=== PATIENT | female | born 1940 | race Caucasian/White ===

== ENCOUNTER 2016-12-15 14:46 | Inpatient (IN) | payer MEDICARE, OTHER ==
--- NOTE | ~2016-12-15 | IDS ---
Interim Discharge Summary [facility] [address] [place]. [address] NAME: BRIDGET PAGAN : 42 STATUS : ADM IN [facility]#: [id number] AGE: 76 ADM/REG DATE : 12/15/16 MR#: [id number] REPORT SERV DATE: 12/18/16 DICTATED BY: REBECCA ONTIVEROS DATE: 12/18/16 REPORT STATUS : Draft TRANSCRIBED BY: MODL DATE: 12/18/16 ADMISSION DATE: 12/15/2016 DISCHARGE DATE: Date that this patient will be taken over by my partner include 12/19/2016. CONDITION: Condition of the patient so far is stable. DIAGNOSES: So far: 1. Left lower extremity cellulitis-improving, but very slowly with IV antibiotics- the patient is on IV Ancef at this time. Leukocytosis that was present upon admission has completely resolved right now, and the sepsis has resolved; however, the left lower extremity cellulitis itself has not improved to my expectation, hence ID has been consulted for this. 2. Blood cultures have been negative. 3. Other diagnoses that are stable at this time include hypertension, which is stable with her home medications. 4. The patient did have one episode of rapid atrial fibrillation for a brief period, for which the patient was started on IV Cardizem and Cardiology was consulted, but within a few hours this resolved and the patient has been doing well with Cardizem 60 mg every six hours. Eventually, this may need to be changed to Cardizem CD 120 mg p.o. b.i.d. Cardiology has not advised any further intervention on this patient. Echocardiogram at this time is pending to check for LV dysfunction/diastolic dysfunction in this patient. 5. Chronic venous insufficiency and this is probably from prolonged standing that the patient has been doing for years at work. 6. Probable early dementia which can be worked up as an outpatient as the patient's daughter also states that she has been slightly confused and somewhat forgetful for a while now. BRIEF HOSPITAL COURSE: Ms. Pagan is a very pleasant 76-year-old patient who was admitted essentially with left lower extremity cellulitis as a direct admit from Dr. Moss's office. The patient was started on IV fluids, IV antibiotics with Ancef. Blood cultures are negative. The patient did not have any open wound anywhere from the left lower extremity for culture. She does have onychomycosis of the toes, for which she went to a laborer wharf recently for her left foot. However, there are no open wounds and no discharge for culture and hence the patient has been continuing to be on Ancef. She has done pretty well and her left lower extremity cellulitis has improved, but not tremendously. Hence, I have consulted ID to see if this patient is a candidate for maybe additional vancomycin or Zosyn and vancomycin or other suggestion for antibiotics. ID will be seeing her on 12/19/2016. Other than that, the patient was doing well and her fever and leukocytosis completely resolved. At one time, she had an episode of rapid atrial fibrillation for a few hours, for which we had to put her on IV Cardizem and consult Cardiology. She was asymptomatic otherwise. This may have been part of her systemic sepsis itself because this happened early on during admission. Cardiology consulted and decided that they would not do any further interventions on her except check an echocardiogram. After that for the last 24 to Interim Discharge Summary [address] [address] NAME: BRIDGET PAGAN : 42 STATUS : ADM IN PAT#: [id number] AGE: 76 ADM/REG DATE : 12/15/16 MR#: [id number] REPORT SERV DATE: 12/18/16 DICTATED BY: REBECCA ONTIVEROS DATE: 12/18/16 REPORT STATUS : Draft TRANSCRIBED BY: YOLETTE DATE: 12/18/16 48 hours, the patient has remained in sinus rhythm with just p.o. Cardizem 60 mg every six hours. Eventually, this may need to be changed back to her home dose of Cardizem CD 120 mg p.o. b.i.d. and watch her. Her left lower extremity cellulitis should improve within a few days, but we will see what ID suggests. This is my interim discharge summary and this patient will be taken over by my colleague on 12/20/2016. NORA/YOLETTE Rebecca Ontiveros M.D. / [id number] CC: Chilo Villarreal M.D.
--- NOTE | ~2016-12-15 | DS ---
Discharge Summary [facility] [address] [place]. [address] NAME: BRIDGET CASAS : 42 STATUS : DIS IN PAT#: [id number] AGE: 76 ADM/REG DATE : 12/15/16 MR#: [id number] REPORT SERV DATE: 12/22/16 DICTATED BY: ED YE DATE: 12/21/16 REPORT STATUS : Draft TRANSCRIBED BY: MODL DATE: 12/21/16 ADMISSION DATE: 12/15/2016 DISCHARGE DATE: 12/21/2016 HOSPITAL COURSE: 76-year-old female with history of hypertension, osteoarthritis, history of recurrent cellulitis, and lymphedema. The patient came in, direct admission from Dr. Moss's office. Left leg redness pain and swelling. Clinical cellulitis. She had a slow clinical improvement. IV antibiotics and IV Ancef. Leukocytosis, resolved. Blood cultures, no growth to date. She has some RVR, placed on IV diltiazem and transitioned, diltiazem CD 120 p.o. b.i.d. with Cardiology as well. The patient was seen by Infectious Disease, given slowly progressing cellulitis, seen by Dr. Remy. She was noted to have some onychomycosis. We will give her terbinafine for 12 weeks and baseline LFTs. Increased the dose to Ancef 2 g IV q.8 now, transition to oral therapy as Duricef 1 g p.o. b.i.d. for seven days. Follow up with Dr. Remy in two weeks, and to have more strict bed rest. Get the swelling down faster. Once her swelling is down significantly, she will need to be measured for fitting compression stockings, wear those all the times when she is up, and this is defer to Home Health to facilitate compression stockings. The patient is amenable for discharge, wants to go home. Home Health. She was placed on Eliquis with Cardiology. DISCHARGE MEDICATIONS: Eliquis 5 p.o. b.i.d.; Lipitor 10 p.o. q.h.s.; cefadroxil, see script; diltiazem CD 120 p.o. b.i.d.; hydralazine 25 p.o. b.i.d.; lisinopril 5 p.o. q.h.s.; and chlorthalidone 25 p.o. daily. Home Health for compression stockings after finishing antibiotics. DISCHARGE DIAGNOSES: Sepsis, left lower extremity cellulitis, lymphedema, hypertension, onychomycosis, osteoarthritis, paroxysmal atrial fibrillation. All questions were answered. It took well over 30 minutes to do. DICTATED BY: DO GEORGE Smith/YOLETTE Ed Ye DO / [id number] CC: Discharge Summary [address] [address] NAME: BRIDGET CASAS : 42 STATUS : DIS IN PAT#: [id number] AGE: 76 ADM/REG DATE : 12/15/16 MR#: [id number] REPORT SERV DATE: 12/22/16 DICTATED BY: ED YE DATE: 12/21/16 REPORT STATUS : Draft TRANSCRIBED BY: YOLETTE DATE: 12/21/16 DO David Smith M.D.
--- NOTE | ~2016-12-15 | CN ---
Consultation Report [facility] [address] [place]. [address] NAME: VANE PAGAN : 42 STATUS : ADM IN [facility]#: [id number] AGE: 76 ADM/REG DATE : 12/15/16 MR#: [id number] REPORT SERV DATE: 12/16/16 DICTATED BY: PORFIRIO MONGE DATE: 12/16/16 REPORT STATUS : Draft TRANSCRIBED BY: MODL DATE: 12/16/16 CARDIOVASCULAR CONSULTATION DATE OF CONSULTATION: 12/16/2016 HISTORY OF PRESENT ILLNESS: Ms. Vane Pagan is a 76-year-old female, whom I see for hypertension, hyperlipidemia, and frequent PACs. She was admitted yesterday after seeing Dr. David Moss in the office where she was found to have a significant left lower extremity cellulitis. The patient had a white blood cell count performed there of 21,000. I was asked to see her for several episodes of tachycardia. The patient denies any chest pain or shortness of breath. She just reports that she has been extremely fatigued over the last several days and that while at work on Monday began having some chills. She then saw Dr. Moss the next day. PAST MEDICAL HISTORY: As noted above. Significant for previous history of hypertension, hyperlipidemia, and frequent PACs. The patient has a history of scoliosis. She reports that this is her third episode of lower extremity cellulitis. The patient also with a history of osteoarthritis. SOCIAL HISTORY: The patient does not smoke. FAMILY HISTORY: Positive for coronary artery disease. MEDICATIONS: See list. ALLERGIES: THE PATIENT REPORTS NO KNOWN DRUG ALLERGIES. PHYSICAL EXAMINATION: VITAL SIGNS: Blood pressure 129/61, pulse 79, respiratory rate 16, and temperature 99.2 (T- max 100.2). GENERAL: This is a well-developed, well-nourished, disheveled-appearing 76-year-old white female, alert and oriented x3. Sitting up and eating dinner. NECK: No jugular venous distention, hepatojugular reflux, or carotid bruits. CARDIOVASCULAR: Normal rate with regular rhythm. Occasional ectopy is noted. No murmur, gallop, click, or rub is appreciated. LUNGS: Clear to auscultation without wheezes, rales, or rhonchi. ABDOMEN: Benign. EXTREMITIES: Exam reveals 2+ lower extremity edema with erythema on the left consistent with cellulitis. There is trace lower extremity edema on the right. IMAGING: EKG shows normal sinus rhythm with frequent PACs. There is no evidence of recent or remote myocardial infarction. No evidence of ischemia or injury. Review of rhythm strips shows an intermittent irregular tachycardia, which appears supraventricular, most Consultation Report [facility] [address] [place]. [address] NAME: VANE PAGAN : 42 STATUS : ADM IN PAT#: [id number] AGE: 76 ADM/REG DATE : 12/15/16 MR#: [id number] REPORT SERV DATE: 12/16/16 DICTATED BY: PORFIRIO MONGE DATE: 12/16/16 REPORT STATUS : Draft TRANSCRIBED BY: YOLETTE DATE: 12/16/16 likely PAT, although there may be some brief runs of atrial fibrillation. ASSESSMENT: 1. Normal sinus rhythm with PACs (chronic) is the underlying predominant rhythm. There do appear to be short runs of a supraventricular tachycardia likely PAT or brief runs of atrial fibrillation. 2. Cellulitis. 3. Hypertension. 4. Hyperlipidemia. PLAN: 1. Agree with Cardizem. Would increase the dose as tolerated. Do not recommend anticoagulation at this time. 2. Check echocardiogram. 3. Appreciate your consultation on this complex patient. I will follow her with you. /YOLETTE Porfirio Monge M.D., [facility] / [id number] CC: Chilo Villarreal M.D.
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
[~2016-12-15 14:46] MED LIST: CARDIZEM LA120 MG PO; CARTIA XT120 MG/24 PO; CAT1 PO; CIP5 PO; FISH-EPA1000 MG PO; LIPITOR10 PO; LIPITOR20 PO; METAMUCIL CAN7 OZ PO; PCET PO; PROLOP100 PO; VITAMIN D1000 UNI1 PO; VITAMIN D3 OTC PO; VITAMIN D31000 UNIT PO; VITAMINS; ZESTRIL30 MG PO; ZIAC10 PO; ZOCOR20 PO
[2016-12-15 16:47] LABS: BASOPHILS 0.1 %; BASOPHILS ABSOLUTE 0.02 10/3/uL (0.0-0.16); EOSINOPHILS 0 %; EOSINOPHILS ABSOLUTE 0.01 10/3/uL (0.0-0.53); HEMATOCRIT 35.4 % (36.0-48.0); IMMATURE GRANULOCYTES 0.4 %; IMMATURE GRANULOCYTES ABSOLUTE 0.08 10/3/uL (0.0-0.11); LYMPHOCYTES ABSOLUTE 1.44 10/3/uL (0.67-4.30); MANUAL DIFF NO %; MEAN CORPUS HGB CONC 33.9 g/dL (32.0-36.0); MEAN CORPUSCULAR HEMOGLOB 30.7 pg (26.0-34.0); MEAN CORPUSCULAR VOLUME 90.5 fL (80-100); MEAN PLATELET VOLUME 10.6 fL (9.2-13.0); MONOCYTES 4.7 %; MONOCYTES ABSOLUTE 0.96 10/3/uL (0.21-1.20); NEUTROPHILS 87.8 %; NEUTROPHILS ABSOLUTE 18.03 10/3/uL (2.02-8.40); PLATELET COUNT 214 10/3/uL (150-400); RBC DISTRIBUTION WIDTH 13.7 % (12.0-16.0); RED CELL COUNT 3.91 10/6/uL (4.0-5.6); WHITE BLOOD CELLS 20.5 10/3/uL (4.5-10.5)
[2016-12-15 17:02] LABS: A/G RATIO 0.8 (0.7-1.9); ALBUMIN 3.1 G/DL (3.5-5.0); CALCIUM, SERUM 9.1 MG/DL (8.5-10.4); GLUCOSE, SERUM 96 MG/DL (60-99); POTASSIUM, SERUM 3.2 MMOL/L (3.5-5.3); SGOT(AST) 23 U/L (5-40); SGPT(ALT) 32 U/L (5-65); TOTAL PROTEIN 7.1 G/DL (6.0-8.5)
[2016-12-15 17:03] LABS: ALKALINE PHOSPHATASE 89 U/L (45-117); BUN (BLOOD UREA NITROGEN) 33 MG/DL (6-23); CHLORIDE, SERUM 94 MMOL/L (96-112); CO2 (CARBON DIOXIDE) 29 MMOL/L (24-34); CREATININE 1.13 MG/DL (0.55-1.02); GFR AFRICAN AMERICAN 55 ML/MIN (>=60); GFR NON AFRICAN AMERICAN 48 ML/MIN (>=60); SODIUM, SERUM 131 MMOL/L (135-148); TOTAL BILIRUBIN 1.5 MG/DL (0-1.2)
[2016-12-15] MEDS ORDERED: ZESTRIL30 MG PO (17:04)
[2016-12-15] MEDS ORDERED: APRES25 PO (17:04)
[2016-12-15] MEDS ORDERED: HYGROTON 25 MG25 MG PO (17:04)
[2016-12-15] MEDS ORDERED: LIPITOR10 PO (17:05)
[2016-12-15] MEDS ORDERED: CARTIA XT120 MG/24 PO (17:05)
[2016-12-16 08:24] LABS: BASOPHILS 0.2 %; BASOPHILS ABSOLUTE 0.03 10/3/uL (0.0-0.16); EOSINOPHILS 0.1 %; EOSINOPHILS ABSOLUTE 0.01 10/3/uL (0.0-0.53); HEMATOCRIT 33.7 % (36.0-48.0); HEMOGLOBIN 11.6 g/dL (12.0-16.0); IMMATURE GRANULOCYTES 0.6 %; IMMATURE GRANULOCYTES ABSOLUTE 0.09 10/3/uL (0.0-0.11); LYMPHOCYTES ABSOLUTE 1.64 10/3/uL (0.67-4.30); MEAN CORPUS HGB CONC 34.4 g/dL (32.0-36.0); MEAN CORPUSCULAR HEMOGLOB 30.7 pg (26.0-34.0); MEAN CORPUSCULAR VOLUME 89.2 fL (80-100); MEAN PLATELET VOLUME 10.5 fL (9.2-13.0); MONOCYTES 7.8 %; MONOCYTES ABSOLUTE 1.27 10/3/uL (0.21-1.20); NEUTROPHILS 81.3 %; NEUTROPHILS ABSOLUTE 13.32 10/3/uL (2.02-8.40); PLATELET COUNT 176 10/3/uL (150-400); RED CELL COUNT 3.78 10/6/uL (4.0-5.6); WHITE BLOOD CELLS 16.4 10/3/uL (4.5-10.5)
[2016-12-16 08:25] LABS: MANUAL DIFF NO %
[2016-12-16 08:40] LABS: ASCORBIC ACID (UR NOT ORDER) NEG (NEG); BILIRUBIN, URINE NEGATIVE (NEG); KETONE, URINE NEGATIVE (NEG); LEUKOCYTE ESTERASE(NOT OR LARGE (NEG); WBC (NOT ORDERED) (RFLEX) 58 (0-5)
[2016-12-16 08:41] LABS: BUN (BLOOD UREA NITROGEN) 30 MG/DL (6-23); CALCIUM, SERUM 8.8 MG/DL (8.5-10.4); CHLORIDE, SERUM 100 MMOL/L (96-112); CREATININE 1.09 MG/DL (0.55-1.02); GFR AFRICAN AMERICAN 58 ML/MIN (>=60); GFR NON AFRICAN AMERICAN 50 ML/MIN (>=60); POTASSIUM, SERUM 3.4 MMOL/L (3.5-5.3); SODIUM, SERUM 133 MMOL/L (135-148)
[2016-12-16 08:42] LABS: CO2 (CARBON DIOXIDE) 22 MMOL/L (24-34); GLUCOSE, SERUM 120 MG/DL (60-99)
[2016-12-17 05:34] LABS: BASOPHILS 0.2 %; BASOPHILS ABSOLUTE 0.02 10/3/uL (0.0-0.16); EOSINOPHILS 0.7 %; EOSINOPHILS ABSOLUTE 0.08 10/3/uL (0.0-0.53); HEMATOCRIT 30.6 % (36.0-48.0); HEMOGLOBIN 10.3 g/dL (12.0-16.0); IMMATURE GRANULOCYTES 0.9 %; LYMPHOCYTES ABSOLUTE 1.29 10/3/uL (0.67-4.30); MEAN CORPUS HGB CONC 33.7 g/dL (32.0-36.0); MEAN CORPUSCULAR HEMOGLOB 30.2 pg (26.0-34.0); MEAN CORPUSCULAR VOLUME 89.7 fL (80-100); MEAN PLATELET VOLUME 11.2 fL (9.2-13.0); MONOCYTES 11.2 %; MONOCYTES ABSOLUTE 1.31 10/3/uL (0.21-1.20); NEUTROPHILS ABSOLUTE 8.88 10/3/uL (2.02-8.40); PLATELET COUNT 185 10/3/uL (150-400); RED CELL COUNT 3.41 10/6/uL (4.0-5.6); WHITE BLOOD CELLS 11.7 10/3/uL (4.5-10.5)
[2016-12-17 05:35] LABS: MANUAL DIFF NO %
[2016-12-17 05:47] LABS: CALCIUM, SERUM 8.5 MG/DL (8.5-10.4); CHLORIDE, SERUM 99 MMOL/L (96-112); CREATININE 0.94 MG/DL (0.55-1.02); GFR AFRICAN AMERICAN 69 ML/MIN (>=60); GFR NON AFRICAN AMERICAN 60 ML/MIN (>=60); GLUCOSE, SERUM 99 MG/DL (60-99); SODIUM, SERUM 133 MMOL/L (135-148)
[2016-12-17 05:48] LABS: BUN (BLOOD UREA NITROGEN) 23 MG/DL (6-23); CO2 (CARBON DIOXIDE) 27 MMOL/L (24-34)
[2016-12-19 06:18] LABS: HEMATOCRIT 31.1 % (36.0-48.0); HEMOGLOBIN 10.5 g/dL (12.0-16.0); MEAN CORPUS HGB CONC 33.8 g/dL (32.0-36.0); MEAN CORPUSCULAR HEMOGLOB 31.1 pg (26.0-34.0); MEAN PLATELET VOLUME 10.6 fL (9.2-13.0); PLATELET COUNT 229 10/3/uL (150-400); RBC DISTRIBUTION WIDTH 13.2 % (12.0-16.0); RED CELL COUNT 3.38 10/6/uL (4.0-5.6); WHITE BLOOD CELLS 10.3 10/3/uL (4.5-10.5)
[2016-12-19 06:21] LABS: MANUAL DIFF YES %
[2016-12-19 06:26] LABS: CALCIUM, SERUM 8.8 MG/DL (8.5-10.4); CHLORIDE, SERUM 101 MMOL/L (96-112); CO2 (CARBON DIOXIDE) 28 MMOL/L (24-34); CREATININE 0.72 MG/DL (0.55-1.02); GFR AFRICAN AMERICAN 96 ML/MIN (>=60); GFR NON AFRICAN AMERICAN 83 ML/MIN (>=60); GLUCOSE, SERUM 95 MG/DL (60-99); POTASSIUM, SERUM 3.5 MMOL/L (3.5-5.3); SODIUM, SERUM 137 MMOL/L (135-148)
[2016-12-19 06:29] LABS: BUN (BLOOD UREA NITROGEN) 16 MG/DL (6-23)
[2016-12-19 07:23] LABS: BAND NEUTROPHILS 8 %; EOSINOPHILS 1 %; IMMATURE GRANS ABSOLUTE (CALC) 0.52 10/3/uL (0.0-0.11); LYMPHOCYTES 12 %; LYMPHOCYTES ABSOLUTE (CALC) 1.24 10/3/uL (0.67-4.30); METAMYELOCYTES 5 %; MONOCYTES 9 %; MONOCYTES ABSOLUTE (CALC) 0.93 10/3/uL (0.21-1.20); NEUTROPHILS ABSOLUTE (CALC) 7.52 10/3/uL (2.02-8.40); PLATELET ESTIMATE ADQ (ADEQUATE); RBC MORPHOLOGY NORM (NORMAL); SEGMENTED NEUTROPHIL (0) 65 %; TOTAL NUCLEATED CELLS 100
[2016-12-20 01:40] LABS: CPK (IF ELEVATED MB BANDS) 24 U/L (0-200); TROPONIN I <0.02 NG/ML (<0.05)
[2016-12-20 06:17] LABS: BUN (BLOOD UREA NITROGEN) 13 MG/DL (6-23); CALCIUM, SERUM 9.1 MG/DL (8.5-10.4); CHLORIDE, SERUM 101 MMOL/L (96-112); CO2 (CARBON DIOXIDE) 27 MMOL/L (24-34); CREATININE 0.61 MG/DL (0.55-1.02); GFR AFRICAN AMERICAN 104 ML/MIN (>=60); GFR NON AFRICAN AMERICAN 89 ML/MIN (>=60); GLUCOSE, SERUM 92 MG/DL (60-99); POTASSIUM, SERUM 3.7 MMOL/L (3.5-5.3); SODIUM, SERUM 137 MMOL/L (135-148)
[2016-12-20 06:38] LABS: HEMATOCRIT 33.3 % (36.0-48.0); HEMOGLOBIN 11.3 g/dL (12.0-16.0); MANUAL DIFF YES %; MEAN CORPUS HGB CONC 33.8 g/dL (32.0-36.0); MEAN CORPUSCULAR HEMOGLOB 30.6 pg (26.0-34.0); MEAN CORPUSCULAR VOLUME 90.3 fL (80-100); MEAN PLATELET VOLUME 9.3 fL (6.8-10.8); PLATELET COUNT 242 10/3/uL (150-400); RBC DISTRIBUTION WIDTH 12.9 % (12.0-16.0); RED CELL COUNT 3.69 10/6/uL (4.0-5.6); WHITE BLOOD CELLS 12.2 10/3/uL (4.5-10.5)
[2016-12-20 07:44] LABS: BAND NEUTROPHILS 3 %; EOSINOPHILS 1 %; EOSINOPHILS ABSOLUTE (CALC) 0.12 10/3/uL (0.0-0.53); LYMPHOCYTES 16 %; LYMPHOCYTES ABSOLUTE (CALC) 1.95 10/3/uL (0.67-4.30); MONOCYTES 4 %; MONOCYTES ABSOLUTE (CALC) 0.49 10/3/uL (0.21-1.20); NEUTROPHILS ABSOLUTE (CALC) 9.64 10/3/uL (2.02-8.40); PLATELET ESTIMATE ADQ (ADEQUATE); RBC MORPHOLOGY NORM (NORMAL); SEGMENTED NEUTROPHIL (0) 76 %; TOTAL NUCLEATED CELLS 100
[2016-12-20 09:14] LABS: CPK (IF ELEVATED MB BANDS) 23 U/L (0-200); TROPONIN I <0.02 NG/ML (<0.05)
[2016-12-20 17:28] LABS: CPK (IF ELEVATED MB BANDS) 26 U/L (0-200); TROPONIN I <0.02 NG/ML (<0.05)
[2016-12-21 01:22] LABS: TROPONIN I <0.02 NG/ML (<0.05)
[2016-12-21 01:23] LABS: CK-MB 0.5 NG/ML; CPK 27 U/L (0-200)
[2016-12-21 04:52] LABS: HEMATOCRIT 31.9 % (36.0-48.0); HEMOGLOBIN 10.7 g/dL (12.0-16.0); MANUAL DIFF YES %; MEAN CORPUS HGB CONC 33.5 g/dL (32.0-36.0); MEAN CORPUSCULAR HEMOGLOB 30.9 pg (26.0-34.0); MEAN CORPUSCULAR VOLUME 92.2 fL (80-100); MEAN PLATELET VOLUME 10.2 fL (9.2-13.0); PLATELET COUNT 280 10/3/uL (150-400); RBC DISTRIBUTION WIDTH 13.4 % (12.0-16.0); RED CELL COUNT 3.46 10/6/uL (4.0-5.6); WHITE BLOOD CELLS 12.2 10/3/uL (4.5-10.5)
[2016-12-21 05:11] LABS: BUN (BLOOD UREA NITROGEN) 15 MG/DL (6-23); CALCIUM, SERUM 9.3 MG/DL (8.5-10.4); CHLORIDE, SERUM 100 MMOL/L (96-112); CO2 (CARBON DIOXIDE) 27 MMOL/L (24-34); CREATININE 0.73 MG/DL (0.55-1.02); GFR AFRICAN AMERICAN 94 ML/MIN (>=60); GFR NON AFRICAN AMERICAN 81 ML/MIN (>=60); GLUCOSE, SERUM 97 MG/DL (60-99); PHOSPHORUS, SERUM 2.4 MG/DL (2.5-4.5); POTASSIUM, SERUM 3.9 MMOL/L (3.5-5.3); SODIUM, SERUM 134 MMOL/L (135-148)
[2016-12-21 05:29] LABS: BAND NEUTROPHILS 1 %; BASOPHILS 1 %; BASOPHILS ABSOLUTE (CALC) 0.12 10/3/uL (0.0-0.16); EOSINOPHILS 1 %; EOSINOPHILS ABSOLUTE (CALC) 0.12 10/3/uL (0.0-0.53); IMMATURE GRANS ABSOLUTE (CALC) 0.37 10/3/uL (0.0-0.11); LYMPHOCYTES 8 %; LYMPHOCYTES ABSOLUTE (CALC) 0.98 10/3/uL (0.67-4.30); METAMYELOCYTES 3 %; MONOCYTES 8 %; MONOCYTES ABSOLUTE (CALC) 0.98 10/3/uL (0.21-1.20); NEUTROPHILS ABSOLUTE (CALC) 9.64 10/3/uL (2.02-8.40); SEGMENTED NEUTROPHIL (0) 78 %; TOTAL NUCLEATED CELLS 100
[2016-12-21 05:31] LABS: PLATELET ESTIMATE ADQ (ADEQUATE); RBC MORPHOLOGY NORM (NORMAL)
[2016-12-21 09:15] LABS: CPK 30 U/L (0-200); TROPONIN I <0.02 NG/ML (<0.05)
[2016-12-21 09:16] LABS: CK-MB < 0.5 NG/ML
[2016-12-21] MEDS ORDERED: ELIQUIS 5 MG TAB5 MG PO (15:26)
[2016-12-21] MEDS ORDERED: LAM250 PO (15:26)
[2016-12-21] MEDS ORDERED: DURICEF PO (15:27)
[2016-12-21 15:55] LABS: ALBUMIN 2.7 G/DL (3.5-5.0); ALKALINE PHOSPHATASE 94 U/L (45-117); CPK 28 U/L (0-200); DIRECT BILIRUBIN 0.1 MG/DL (0.0-0.4); SGOT(AST) 38 U/L (5-40); SGPT(ALT) 36 U/L (5-65); TROPONIN I <0.02 NG/ML (<0.05)
[2016-12-21 15:56] LABS: CK-MB 0.7 NG/ML; INDIRECT BILIRUBIN(NOT ORDER) 0.2 MG/DL (0.1-0.9); TOTAL BILIRUBIN 0.3 MG/DL (0-1.2)
== END 2016-12-21 22:48 | disposition home health service (06) | DRG 872 ==
LOC: 5SO 14:46
PROVIDERS: Internal Medicine
DX: A41.9 Sepsis, unspecified organism (principal); L03.116 Cellulitis of left lower limb; I48.91 Unspecified atrial fibrillation; F03.90 Unspecified dementia, unspecified severity, without behavioral disturbance, psychotic disturbance, mood disturbance, and anxiety; I47.1 Supraventricular tachycardia; I10 Essential (primary) hypertension; B35.1 Tinea unguium; E78.5 Hyperlipidemia, unspecified; I49.1 Atrial premature depolarization; I87.2 Venous insufficiency (chronic) (peripheral); M19.90 Unspecified osteoarthritis, unspecified site; Z82.49 Family history of ischemic heart disease and other diseases of the circulatory system; Z79.899 Other long term (current) drug therapy
CPT/HCPCS: 36415; 71010; 80048; 80053; 80076; 81001; 82550; 82553; 82962; 83605; 83735; 84100; 84145; 84484; 85025; 87040; 87086; 93005; 93306; 97161-GP; A9270-GY; G8978-CJ-GP; G8979-CJ-GP; G8980-CJ-GP; J0690; J1170